=== PATIENT | male | born 1960 | race Caucasian/White ===

== ENCOUNTER 2019-11-18 14:43 | Emergency (ER) | payer OTHER ==
[~2019-11-18] VITALS: Ht 195.6 cm; Wt 134.6 kg
--- NOTE | 2019-11-18 14:49 | NUR ---
STRAIGHT BACK FOR DOG BIT HAPPENED TODAY AT 1130. DOG UTD ON RABIES VACCINE. PT NOTED TO HAVE DEEP WOUND TO L PALM OF HAND. ERP DR. GUTIERREZ AT BEDSIDE.
[2019-11-18] MEDS ORDERED: LIDOCAINE-MPF 1%, 5ML ONE (14:57)
[2019-11-18] MEDS ORDERED: LIDOCAINE-MPF 1%, 5ML INFIL ONE (15:00)
--- NOTE | 2019-11-18 15:20 | NUR ---
REPORT GIVEN TO SILVIA CALDERON.
--- NOTE | 2019-11-18 15:22 | NUR ---
Will [facility] in [facility] - 11/18/19 at 1522 by ANA PT REPORT TO SILVIA FARFAN FOR ROOM [phone]
--- NOTE | 2019-11-18 15:24 | NUR ---
PT REPORT FROM SILVIA CAMPOVERDE. PT CARE TO BE ASSUMED.
[2019-11-18] MEDS ORDERED: NEOSPORIN OINT. PKT 1 PACKET ONE (15:41)
[2019-11-18 15:54] VITALS: BP 114/79
== END 2019-11-18 15:59 | disposition home or self-care (01) ==
LOC: ED 15:44
DX: S61.452A Open bite of left hand, initial encounter (principal); W54.0XXA Bitten by dog, initial encounter; Y93.89 Activity, other specified; Y92.89 Other specified places as the place of occurrence of the external cause; Y99.8 Other external cause status
CPT/HCPCS: 12042; 99284